=== PATIENT | female | born 1980 | race Caucasian/White ===

== ENCOUNTER 2022-06-05 04:35 | Inpatient (IN) | payer MEDICAID ==
[~2022-06-05] VITALS: Ht 167.6 cm; Wt 99.3 kg
[2022-06-05 04:39] VITALS: BP 121/60
--- NOTE | 2022-06-05 04:42 | NUR ---
TO LOBBY A/W BED VIA W/C
--- NOTE | 2022-06-05 05:02 | NUR ---
PT TO BED #7
[2022-06-05] MEDS ORDERED: ONDANSETRON 4 MG/2 ML VIAL IVP ONE (05:05)
[2022-06-05] MEDS ORDERED: MORPHINE SULFATE 4 MG/ML SYR IVP ONE (05:05)
--- NOTE | 2022-06-05 05:05 | NUR ---
Patient resting in bed, A/Ox4, chest rise and fall symmetrical, no s/s of distress, patient on monitor.
--- NOTE | 2022-06-05 05:38 | NUR ---
LABS AND URINE SENT TO LAB
[2022-06-05] MEDS ORDERED: HYDROmorphone PFS 2 MG/ML SYR IVP ONE (05:50)
[2022-06-05 06:09] LABS: BASOPHILS # (AUTO) 0.1 K/uL (0.00-0.22); BASOPHILS % (AUTO) 0.5 % (0.0-2.0); EOSINOPHILS # (AUTO) 0.1 K/uL (0-0.4); EOSINOPHILS % (AUTO) 0.5 % (0.0-4.0); HEMATOCRIT 39.4 % (36-48); HEMOGLOBIN 13.6 g/dL (12.0-16.0); LYMPHOCYTES # (AUTO) 1.1 K/uL (2.5-16.5); LYMPHOCYTES % (AUTO) 10.2 % (20.5-51.1); MEAN CORPUSCULAR HEMOGLOBIN 31 pg (27-31); MEAN CORPUSCULAR HGB CONC 35 g/dL (33-37); MEAN CORPUSCULAR VOLUME 88.8 fL (80-94); MONOCYTES # (AUTO) 0.5 K/uL (0.8-1.0); MONOCYTES % (AUTO) 4.2 % (1.7-9.3); NEUTROPHILS # (AUTO) 9.2 K/uL (1.8-7.7); NEUTROPHILS % (AUTO) 84.6 % (42.2-75.2); PLATELET COUNT (AUTO) 230 K/uL (140-450); RED BLOOD CELL COUNT(AUTO) 4.44 MIL/uL (4.20-5.40); WHITE BLOOD COUNT (AUTO) 10.9 K/uL (4.8-10.8)
[2022-06-05 06:16] LABS: APPEARANCE,URINE CLEAR (CLEAR); BILIRUBIN,URINE NEGATIVE (NEGATIVE); BLOOD, URINE NEGATIVE (NEGATIVE); COLOR,URINE ORANGE (YELLOW); LEUKOCYTE ESTERASE ,URINE NEGATIVE (NEGATIVE); NITRITE, URINE NEGATIVE (NEGATIVE); PH,URINE 5.5 (5.0-9.0); UGLUCOSE NEGATIVE (NEGATIVE)
[2022-06-05 06:27] LABS: ALBUMIN 3.9 g/dL (3.4-5.0); ANION GAP 14.7 (8-16); CARBON DIOXIDE 23.8 mmol/L (21-32); CREATININE 0.6 mg/dL (0.6-1.3); POTASSIUM 3.5 mmol/L (3.5-5.1); TOTAL BILIRUBIN 0.6 mg/dL (0.0-1.0)
--- NOTE | 2022-06-05 06:50 | NUR ---
Patient resting in bed, A/Ox4, chest rise and fall symmetrical, no s/s of distress, patient on monitor. Addendum: 06/05/22 at 0650 by [email or web address] Patient resting in bed, A/Ox4, chest rise and fall symmetrical, no s/s of distress, patient on monitor. Patient states that pain is currently "tolerable."
[2022-06-05] MEDS ORDERED: HYDROcodone/APAP 5/325 MG 1 TAB TAB PO PRN (07:10)
[2022-06-05] MEDS: NACL 0.9% 1,000 ML IV SCH ×2 (07:15→17:15)
--- NOTE | 2022-06-05 07:19 | NUR ---
Change of shift report given to AM shift Nurse Effren RN. AM shift Nurse Effren RN verbalized understanding of report, no further questions.
[2022-06-05] MEDS: HYDROmorphone 1 MG/ML AMP IVP STA ×2 (09:50→10:44)
[2022-06-05] MEDS ORDERED: HYDROmorphone 1 MG/ML AMP ONE (10:41)
[2022-06-05 11:00] VITALS: BP 122/70
--- NOTE | 2022-06-05 11:00 | NUR ---
PT ARRIVED TO [facility] VIA GURNEY AMBULATED TO RESTROOM. AOX4 THAI SPEAKING. RESPIRATIONS EVEN AND UNLABORED ON RA. IV ON R A/C 20G. RUNNING NS @100. VS: TEMP :97.8, PULSE 62, BP 122/70, O2 100%. ORIENTED TO UNIT, ROOM AND RESTROOM. ALL SAFETY PRECAUTIONS IN PLACE. CALL LIGHT WITHIN REACH.
[2022-06-05] MEDS ORDERED: POTASSIUM CHLORIDE 10 MEQ TABER PO PRN (11:20)
[2022-06-05] MEDS ORDERED: HYDROcodone/APAP 7.5/325 MG 1 TAB PO PRN (11:20)
[2022-06-05] MEDS ORDERED: MAG SULF 2000 MG/WATER PREMIX 50 ML IV PRN (11:20)
[2022-06-05] MEDS ORDERED: ONDANSETRON 4 MG/2 ML VIAL IVP PRN (11:20)
[2022-06-05] MEDS ORDERED: ACETAMINOPHEN 325 MG TAB PO PRN (11:20)
[2022-06-05 12:12] LABS: ANION GAP 11.8 (8-16); CARBON DIOXIDE 25.2 mmol/L (21-32); CREATININE 0.5 mg/dL (0.6-1.3)
[2022-06-05 12:17] LABS: PROTHROMBIN TIME 11.1 secs (10.8-13.4)
[2022-06-05 12:30] LABS: BARBITURATE, URINE NEGATIVE ng/ml (NEG <=200); BENZODIAZEPINE, URINE NEGATIVE ng/mL (NEG <=200); CANNABINOID, URINE NEGATIVE ng/mL (NEG <=50); COCAINE, URINE NEGATIVE ng/mL (NEG <=300); OPIATE, URINE NEGATIVE ng/mL (NEG <=2000); PHENCYCLIDINE SCREEN,URINE NEGATIVE ng/mL (NEG <=25)
[2022-06-05 12:31] LABS: AMYLASE 62 U/L (25-115); CHOL/HDL RATIO 2.4 (1-4.5); FREE T4 (FREE THYROXINE) 1.02 ng/dL (0.76-1.46); HDL CHOLESTEROL 62 mg/dL (40-60); LDL (CALC) 76 mg/dL (60-100); LIPASE 93 U/L (73-393); PHOSPHORUS 3.7 mg/dL (2.5-4.9); THYROID STIMULATING HORMONE 0.96 uIU/mL (0.34-3.74); TRIGLYCERIDES 48 mg/dL (30-150)
[2022-06-05 16:00] VITALS: BP 123/66
--- NOTE | 2022-06-05 16:15 | NUR ---
PATIENT HAS BEEN SCREENED AND CATEGORIZED MODERATE NUTRITION RISK. PATIENT WILL BE SEEN WITHIN 3-5 DAYS OF ADMISSION. REVIEWED BY OMAR HAYS RD
--- NOTE | 2022-06-05 19:30 | NUR ---
ENDORSED PT TO PICK UP NURSE FOR CONTINUITY OF CARE. PT OFF UNIT HAVING HIDA SCAN.
--- NOTE | 2022-06-05 19:31 | NUR ---
PT IS WITH RADIOLOGY FOR HIDA SCAN WHEN RECEIVED ENDORSEMENT FROM DAY SHIFT NURSE.
[2022-06-05] MEDS: MORPHINE SULFATE 2 MG/ML SYR IVP PRN (19:44)
--- NOTE | 2022-06-05 19:44 | NUR ---
PT IS IN RADIOLOGY ROOM FOR HIDA SCAN PROCEDURE. ADMINISTERED MORPHINE 2MG PRIOR TO PROCEDURE AT 193 REQUESTED BY RADIOLOGY STAFF, UNABLE TO DOCUMENT AT THAT TIME (1936) DUE TO NOT CAPABLE TO USE SYSTEM AT THAT TIME. I DOCUMENT IT WHEN BACK TO THE [facility].
[2022-06-05 20:00] VITALS: BP 110/59
[2022-06-05] MEDS: PIPERACILLIN/TAZOBACTAM 3.375 GM in DEXTROSE 5% 50 ML IV SCH (20:30)
[2022-06-05] MEDS: DOCUSATE SODIUM 100 MG GELCAP PO SCH (21:30)
[2022-06-06] MEDS: NACL 0.9% 1,000 ML IV SCH ×2 (03:15→13:15)
[2022-06-06 04:00] VITALS: BP 110/60
[2022-06-06] MEDS: PIPERACILLIN/TAZOBACTAM 3.375 GM in DEXTROSE 5% 50 ML IV SCH ×5 (05:24→18:35)
[2022-06-06 06:51] LABS: BASOPHILS % (AUTO) 0.6 % (0.0-2.0); EOSINOPHILS # (AUTO) 0.1 K/uL (0-0.4); EOSINOPHILS % (AUTO) 1.1 % (0.0-4.0); HEMATOCRIT 40.2 % (36-48); HEMOGLOBIN 13.5 g/dL (12.0-16.0); LYMPHOCYTES % (AUTO) 14.2 % (20.5-51.1); MEAN CORPUSCULAR HEMOGLOBIN 30 pg (27-31); MEAN CORPUSCULAR HGB CONC 34 g/dL (33-37); MEAN CORPUSCULAR VOLUME 89.6 fL (80-94); MONOCYTES # (AUTO) 0.6 K/uL (0.8-1.0); MONOCYTES % (AUTO) 7.8 % (1.7-9.3); NEUTROPHILS # (AUTO) 5.5 K/uL (1.8-7.7); NEUTROPHILS % (AUTO) 76.3 % (42.2-75.2); PLATELET COUNT (AUTO) 221 K/uL (140-450); RED BLOOD CELL COUNT(AUTO) 4.48 MIL/uL (4.20-5.40); RED CELL DISTRIBUTION WIDTH 13.2 % (11.6-13.7); WHITE BLOOD COUNT (AUTO) 7.2 K/uL (4.8-10.8)
--- NOTE | 2022-06-06 07:10 | NUR ---
RECEIVED REPORT FROM BOOKER WOO FOR CONTINUITY OF CARE. INITIAL ASSESSMENT DONE. IVF INFUSING WELL. REMAINS ON NPO EXCEPT MEDS, AWAITING FOR SURGERY. REMAINS STABLE.
--- NOTE | 2022-06-06 07:12 | NUR ---
PT OFF UNIT. DOCUMENT IMAGING MANAGER BY MATT PIERCE FROM OR. REPORT GIVEN.
[2022-06-06 07:13] LABS: ANION GAP 11.5 (8-16); CARBON DIOXIDE 27.1 mmol/L (21-32); CREATININE 0.7 mg/dL (0.6-1.3); POTASSIUM 3.6 mmol/L (3.5-5.1)
[2022-06-06] MEDS ORDERED: LIDOCAINE/EPI MPF 1%1:200000 30 ML VIAL INJ ONE (07:15)
[2022-06-06] MEDS ORDERED: BUPIVACAINE-MPF 0.25% 30 ML VIAL INJ ONE (07:16)
[2022-06-06] MEDS ORDERED: SEVOFLURANE 250 ML BTL INH ONE (07:36)
[2022-06-06] MEDS ORDERED: fentaNYL citrate 0.05 MG/ML VIAL ONE (07:48)
[2022-06-06 08:08] LABS: MAGNESIUM 2.1 mg/dL (1.8-2.4); PHOSPHORUS 3.6 mg/dL (2.5-4.9)
[2022-06-06] MEDS ORDERED: ROCURONIUM 50 MG/5 ML VIAL IV ONE (08:31)
[2022-06-06] MEDS ORDERED: PROPOFOL 200 MG/20 ML VIAL IV ONE ×2 (08:31)
[2022-06-06] MEDS ORDERED: SUCCINYLCHOLINE CHLORIDE 200 MG/10 ML VIAL IVP ONE (08:31)
[2022-06-06] MEDS ORDERED: ONDANSETRON 4 MG/2 ML VIAL ONE (08:32)
[2022-06-06] MEDS ORDERED: KETOROLAC 30 MG/ML VIAL ONE (08:32)
[2022-06-06] MEDS: DOCUSATE SODIUM 100 MG GELCAP PO SCH ×2 (09:00→21:15)
[2022-06-06] MEDS: PANTOPRAZOLE 40 MG INJ VIAL IVP SCH (09:33)
[2022-06-06] MEDS ORDERED: NEOSTIGMINE 1:1000 10 MG/10 ML VIAL ONE (09:39)
[2022-06-06] MEDS ORDERED: GLYCOPYRROLATE 0.2 MG/ML VIAL ONE ×5 (09:39)
[2022-06-06] MEDS ORDERED: hydrALAZINE 20 MG/ML VIAL IVP PRN (10:02)
[2022-06-06] MEDS ORDERED: LABETALOL 20 MG/4 ML VIAL IVP PRN (10:02)
[2022-06-06] MEDS ORDERED: METOCLOPRAMIDE 10 MG/2 ML INJ VIAL IVP PRN (10:02)
[2022-06-06] MEDS ORDERED: BLOOD GLUCOSE MONITORING 1 DEV DEV FS ONE (10:05)
[2022-06-06] MEDS ORDERED: LACTATED RINGERS 1,000 ML IV SCH (10:05)
[2022-06-06] MEDS: HYDROmorphone 1 MG/ML AMP IVP PRN ×4 (10:10→10:55)
[2022-06-06] MEDS ORDERED: HYDROmorphone PFS 2 MG/ML SYR ONE (10:16)
[2022-06-06 11:05] VITALS: BP 105/58
--- NOTE | 2022-06-06 11:05 | NUR ---
PT RETURN FROM OR. REPORT RECEIVED FROM MATT PIERCE. [facility]IA [facility]. ALERT AND VERBALLY RESPONSIVE. ON S/P LAP MARGIE, 4 INCISIONS TO ABDOMEN COVERED WITH DERMABOND. DRESSING INTACT. NO BLEEDING NOTED. NO C/O PAIN OR DISCOMFORT. CALL LIGHT KEPT WITHIN REACH. WILL CONTINUE TO MONITOR.
--- NOTE | 2022-06-06 13:49 | NUR ---
SCHEDULED IV ZOSYN GIVEN BY KYRA PIERCE. TOLERATING WELL.
[2022-06-06 16:00] VITALS: BP 121/71
--- NOTE | 2022-06-06 18:35 | NUR ---
SCHEDULED IV ZOSYN AND PRN MORPHINE FOR PAIN MANAGEMENT WAS GIVEN BY KYRA PIERCE. TOLERATING WELL.
[2022-06-06] MEDS: MORPHINE SULFATE 2 MG/ML SYR IVP PRN (18:36)
--- NOTE | 2022-06-06 19:30 | NUR ---
REPORT GIVEN TO HILDA FOR CONTINUITY OF CARE. REMAINS STABLE.
--- NOTE | 2022-06-06 19:31 | NUR ---
RECEIVED ENDORSEMENT FOR CONTINUITY OF CARE FROM CLINT PIERCE, PATIENT WAS IN THE RESTROOM. PATIENT WAS STABLE AND AMBULATORY WITH FAMILY AT BEDSIDE TO ASSIST. PATIENT REQUESTED FOR SECOND IV TO BE REMOVED. NURSING GAVE EDUCATION ON THE EFFECTIVENESS OF BOTH IV ACCESS BUT PATIENT INSISTED AND NURSING WILL REMOVE. PATIENT DENIES ANY PAIN AT THIS TIME. NO NOTED S/S OF RESPIRATORY DISTRESS. SIDE RAILS UP X 2. CALL LIGHT WITHIN REACH FOR ALL ASSISTANCE AND NEEDS. PATIENT IS AWARE OF HOW TO USE THE CALL LIGHT. [id number] Addendum: 06/06/22 at 2019 by Maureen Ramírez LVN WRONG NURSE FOR ABOVE ENDORSEMENT......................RECEIVED ENDORSEMENT FOR CONTINUITY OF CARE FROM LISA PORTILLO, PATIENT WAS ASLEEP AND STABLE DURING SHIFT CHANGE. [email or web address]
--- NOTE | 2022-06-06 21:46 | NUR ---
Patient's Plan of Care was discussed and reviewed with PRINT WASHER: HILDA RAMON
--- NOTE | 2022-06-06 23:10 | NUR ---
PATIENT IN BED RESTING. NO NOTED PAIN/DISCOMFORT. NO RESPIRATORY INCIDENTS. CALL LIGHT WITHIN REACH SIDE RAILS UP X 2. [email or web address]
[2022-06-07] VITALS: BP 119/66
[2022-06-07] MEDS: PIPERACILLIN/TAZOBACTAM 3.375 GM in DEXTROSE 5% 50 ML IV SCH ×3 (00:02→12:18)
[2022-06-07] MEDS: NACL 0.9% 1,000 ML IV SCH ×2 (00:07→09:17)
--- NOTE | 2022-06-07 00:40 | NUR ---
VITAL SIGNS WERE COMPLETED AND TOLERATED WELL. PATIENT WAS ABLE TO GO BACK TO BE WITHOUT INCIDENT. DENIES ANY PAIN/DISCOMFORT. NO NOTED RESPIRATORY DISTRESS. SIDE RAILS UP X2 CALL LIGHT WITHIN REACH. [email or web address]
--- NOTE | 2022-06-07 03:47 | NUR ---
PATIENT COMPLAINED OF ABDOMINAL PAIN. NURSING GAVE PRN NORCO. BP NOTED 145/89 HR 73. NURSING WILL MONITOR X 1 ONE HOUR FOR EFFECTIVENESS. [email or web address]
--- NOTE | 2022-06-07 06:37 | NUR ---
PATIENT IN BED WATCHING TV. NO S/S OF PAIN/DISCOMFORT OR RESPIRATORY DISTRESS. ALL NEEDS MET AND ANTICIPATED. SIDE RAILS UP CALL LIGHT WITHIN REACH. [email or web address]
[2022-06-07 07:25] LABS: BASOPHILS % (AUTO) 0.5 % (0.0-2.0); EOSINOPHILS # (AUTO) 0.1 K/uL (0-0.4); EOSINOPHILS % (AUTO) 1.5 % (0.0-4.0); HEMATOCRIT 34.6 % (36-48); HEMOGLOBIN 11.7 g/dL (12.0-16.0); LYMPHOCYTES # (AUTO) 0.9 K/uL (2.5-16.5); LYMPHOCYTES % (AUTO) 10.7 % (20.5-51.1); MEAN CORPUSCULAR HEMOGLOBIN 31 pg (27-31); MEAN CORPUSCULAR HGB CONC 34 g/dL (33-37); MEAN CORPUSCULAR VOLUME 90.3 fL (80-94); MONOCYTES # (AUTO) 0.6 K/uL (0.8-1.0); MONOCYTES % (AUTO) 6.6 % (1.7-9.3); NEUTROPHILS # (AUTO) 7.1 K/uL (1.8-7.7); NEUTROPHILS % (AUTO) 80.7 % (42.2-75.2); PLATELET COUNT (AUTO) 188 K/uL (140-450); RED BLOOD CELL COUNT(AUTO) 3.84 MIL/uL (4.20-5.40); WHITE BLOOD COUNT (AUTO) 8.8 K/uL (4.8-10.8)
--- NOTE | 2022-06-07 07:31 | NUR ---
ENDORSED PATIENT CARE TO KIRILL PORTILLO FOR CONTINUITY OF CARE. PATIENT WAS STABLE AT THE TIME OF SHIFT CHANGE. [email or web address]
--- NOTE | 2022-06-07 07:32 | NUR ---
RECEIVED REPORT FROM SPEECH TEACHER NURSE FOR CONTINUITY OF CARE. PT IN BED AT THIS TIME, RESPIRATIONS ARE EVEN AND UNLABORED ON ROOM AIR. NO SIGNS OF DISTRESS NOTED. PT IS ALERT AND ORIENTED X4, ABLE TO FOLLOW COMMANDS, ABLE TO VERBALIZE NEEDS. PT IS ICELANDIC SPEAKING. PT IS ON CLEAR LIQUID DIET AT THIS TIME. ABD IS NONDISTENDED, WITH BOWEL SOUNDS NOTED. PT HAS 3 SURGICAL SITES, PT IS S/P LAPAROSCOPIC CHOLECYSTECTOMY. NO DRAINAGE NOTED. PT STATES MINIMAL PAIN, STATES IT IS TOLERABLE AT THIS TIME. PT IS ABLE TO AMBULATE INDEPENDENTLY. PT IS CONTINENT OF BOWEL AND BLADDER. PT HAS IV TO R HAND, 20G, INTACT AND PATENT. CALL LIGHT WITHIN REACH. ALL SAFETY MEASURES IN PLACE. WILL CONTINUE TO MONITOR.
[2022-06-07 07:33] LABS: BILIRUBIN,DIRECT 0.2 mg/dL (0.0-0.3); TOTAL BILIRUBIN 0.7 mg/dL (0.0-1.0)
[2022-06-07 07:55] LABS: MAGNESIUM 2.1 mg/dL (1.8-2.4); PHOSPHORUS 2.7 mg/dL (2.5-4.9)
[2022-06-07 08:00] VITALS: BP 137/85
[2022-06-07] MEDS: PANTOPRAZOLE 40 MG INJ VIAL IVP SCH (09:20)
[2022-06-07] MEDS: DOCUSATE SODIUM 100 MG GELCAP PO SCH (09:22)
--- NOTE | 2022-06-07 11:20 | NUR ---
PT TOLERATING CLEAR LIQUID DIET. ASKING IF SHE CAN GET ANOTHER KIND OF FOOD. DR MCMAHON MADE AWARE. PER DR MCMAHON, OK TO ADVANCE DIET.
[2022-06-07] MEDS ORDERED: ACET-9531 PO (15:31)
--- NOTE | 2022-06-07 16:02 | NUR ---
PT HAS DISCHARGE ORDER IN PLACE. STATES RIDE WILL BE HERE AT 1700.
[2022-06-07 16:12] VITALS: BP 137/80
--- NOTE | 2022-06-07 17:11 | NUR ---
WENT OVER DISCHARGE PAPERWORK. EXPLAINED PAPERWORK. PT SIGNED ALL PAPERWORK. REMOVED IV. IV CATHETER INTACT. PT DISCHARGED HOME WITH ALL BELONGINGS.
== END 2022-06-07 17:10 | disposition home or self-care (01) | DRG 710 ==
LOC: MED 04:35 → MMU 07:13 → MTU 10:22
PROC: 0DNU4ZZ Release Omentum, Percutaneous Endoscopic Approach (ICD-10-PCS; 2022-06-06)
PROC: 0FT44ZZ Resection of Gallbladder, Percutaneous Endoscopic Approach (ICD-10-PCS; principal; 2022-06-06 07:30)
DX: A41.9 Sepsis, unspecified organism (principal); K80.00 Calculus of gallbladder with acute cholecystitis without obstruction; K82.A1 Gangrene of gallbladder in cholecystitis; E66.9 Obesity, unspecified; Z20.822 Contact with and (suspected) exposure to COVID-19; Z68.35 Body mass index [BMI] 35.0-35.9, adult; Z98.891 History of uterine scar from previous surgery
CPT/HCPCS: 36415; 71045; 76705; 78445; 80048; 80053; 80076; 80305; 81003; 82140; 82150; 83036; 83605; 83690; 83735; 83880; 84100; 84439; 84443; 84484; 85025; 85610; 85730; 86886; 86900; 86901; 87040; 87070; 87075; 87081; 87086; 87205; 88304; 93005; 96374; 96375; 96376; 99285; C9113; J0330; J1170; J1644; J1885; J2001; J2270; J2405; J2543; J2704; J2710; J3010; J3490; J7030; J7060; J7120; Q0092